=== PATIENT | female | born 1980 | race Caucasian/White ===

== ENCOUNTER 2017-10-01 06:39 | Emergency (ER) ==
[2017-10-01 06:42] VITALS: BP 127/83; TEMP 98.8; BMI 21.6
[2017-10-01] MEDS ORDERED: SODIUM CHLORIDE 1,000 ML IV STA (07:08)
--- NOTE | 2017-10-01 07:14 | ED.PDOC ---
General ED Provider: Dr. VIKTOR YEE Chief Complaint: Abdominal Pain Stated Complaint: Patient states that the she started having diarrhea every 15 min since 3 this AM. States she drank chochlete milk at 11pm that was not . States has an IUD. Time Seen by Physician: 07:11 Mode of Arrival: Walk-In Information Source: Patient Exam Limitations: No limitations Primary Care Provider: TAMARA STOVALL Nursing and Triage Documentation Reviewed and Agree: Yes Reviewed sepsis parameters & appropriate labs ordered?: Yes System Inflammatory Response Syndrome: Pulse >90 BPM Sepsis Protocol: For patient's 13 years and over: Temp is 96.8 and below OR 101 and greater Pulse >90 BPM Resp >20/minute Acutely Altered Mental Status Are patient's symptoms suggestive of a new infection, such as: -Pneumonia -Skin, Soft Tissue -Endocarditis -UTI -Bone, Joint Infection -Implantable Device -Acute Abdominal Infection -Wound Infection -Meningitis -Blood Stream Catheter Infection -Unknown System Inflammatory Response Syndrome: Not Applicable GI Complaint Exam - Vomiting/Diarrhea Complaint/Exam Onset/Duration: 3 hours Symptoms Are: Still present Episodes of Diarrhea Over Last 24 Hours: 12 Initial Severity: Moderate Current Severity: Severe Character of Diarrhea: Reports: Watery Aggravating: Reports: Food Alleviating: Reports: None Associated Signs and Symptoms: Denies: Dizziness, Light-headedness, Melena, Hematemesis, Fever, Abdominal pain, Cramping Recent Positive Test: No Use of Oral Contraceptives: No Use of Depoprovera: No Compliant With Contraceptive Use: No Non-GI Risk Factors: Reports: None Surgical Obstruction Risk Factors: Reports: None Related Surgical History: Reports: None Abdominal Findings: Absent: Pulsatile mass, Abdominal distention, Rebound tenderness, McBurney's Point tender Kussmaul Respirations Present: No Differential Diagnoses: Gastritis, Viral Gastroenteritis, Bacterial Gastroenteritis, , UTI Review of Systems - Review Of Systems Constitutional: Reports: No symptoms Eyes: Reports: No symptoms Ears, Nose, Mouth, Throat: Reports: No symptoms Respiratory: Reports: No symptoms Cardiac: Reports: No symptoms GI: Reports: Abdominal pain, Diarrhea, Nausea, Poor appetite : Reports: No symptoms Musculoskeletal: Reports: No symptoms Skin: Reports: No symptoms Neurological: Reports: No symptoms Endocrine: Reports: No symptoms Hematologic/Lymphatic: Reports: No symptoms All Other Systems: Reviewed and Negative Past Medical History - Past Medical History Previously Healthy: Yes Endocrine: Reports: None Cardiovascular: Reports: None Respiratory: Reports: None Hematological: Reports: None Gastrointestinal: Reports: None Genitourinary: Reports: None Neuro/Psych: Reports: None Musculoskeletal: Reports: None Cancer: Reports: None Last Menstrual Period: NONE - Surgical History General Surgical History: Reports: , Other (IUD placement ) - Family History Family History: Reports: None - Social History Smoking Status: Never smoker Hx Substance Use: No Alcohol Screening: None - Immunizations Tetanus Shot up to Date: Yes Physical Exam - Physical Exam Appearance: Ill-appearing Ill-appearing: Moderate Pain Distress: Severe Neck: Supple Respiratory: Airway patent, Breath sounds clear, Breath sounds equal, Respirations nonlabored Cardiovascular: RRR, Pulses normal, No rub, No murmur GI/: Soft, Tender (epigastric area, no rebound.) Musculoskeletal: Normal strength, ROM intact, No edema, No calf tenderness Skin: Warm, Dry, Normal color Neurological: Sensation intact, Motor intact, Reflexes intact, Cranial nerves intact, Alert, Oriented Psychiatric: Anxious Interpretation - Radiology Interpretation Radiology Interpretation By: Radiologist Radiology Results: Positive Exam Interpreted: CT Scan (enteritis ) Critical Care Note - Critical Care Note Total Time (mins): 0 Course - Course Hematology/Chemistry: 10/01/17 07:25 10/01/17 08:15 Orders, Labs, Meds: Lab Review 10/01/17 10/01/17 10/01/17 07:25 07:25 07:25 WBC 15.21 H RBC 4.75 Hgb 13.5 Hct 41.4 MCV 87.2 MCH 28.4 MCHC 32.6 RDW Coeff of Toni 12.7 Plt Count 267 Immature Gran % (Auto) 0.3 Neut % (Auto) 78.5 Lymph % (Auto) 15.0 Dolores % (Auto) 5.1 Eos % (Auto) 0.6 Baso % (Auto) 0.5 Immature Gran # (Auto) 0.1 Neut # 11.9 H Lymph # 2.3 Dolores # 0.8 Eos # 0.1 Baso # 0.1 Sodium Potassium Chloride Carbon Dioxide Anion Gap BUN Creatinine Estimated GFR (MDRD) BUN/Creatinine Ratio Glucose Calcium Total Bilirubin AST ALT Alkaline Phosphatase Total Protein Albumin Globulin Albumin/Globulin Ratio Amylase Lipase Urine Color Yellow Urine Clarity Clear Urine pH 5.0 Ur Specific [place] >=1.030 Urine Protein Negative Urine Glucose (UA) Negative Urine Ketones Negative Urine Blood 1+ Urine Nitrite Negative Urine Bilirubin Negative Urine Urobilinogen 0.2 Ur Leukocyte Esterase Negative Urine Microscopic RBC 5-10 Ur Squamous Epith Cells 10-20 Urine Mucus 1+ Urine Test Negative 10/01/17 08:15 WBC RBC Hgb Hct MCV MCH MCHC RDW Coeff of Toni Plt Count Immature Gran % (Auto) Neut % (Auto) Lymph % (Auto) Dolores % (Auto) Eos % (Auto) Baso % (Auto) Immature Gran # (Auto) Neut # Lymph # Dolores # Eos # Baso # Sodium 139 Potassium 4.1 Chloride 110 H Carbon Dioxide 22 Anion Gap 11.1 BUN 12 Creatinine 0.67 Estimated GFR (MDRD) 99.00 BUN/Creatinine Ratio 17.91 Glucose 111 H Calcium 9.3 Total Bilirubin 0.3 AST 13 L ALT 8 L Alkaline Phosphatase 60 Total Protein 7.2 Albumin 3.9 Globulin 3.3 Albumin/Globulin Ratio 1.18 Amylase 28 Lipase 10 Urine Color Urine Clarity Urine pH Ur Specific [place] Urine Protein Urine Glucose (UA) Urine Ketones Urine Blood Urine Nitrite Urine Bilirubin Urine Urobilinogen Ur Leukocyte Esterase Urine Microscopic RBC Ur Squamous Epith Cells Urine Mucus Urine Test Orders Category Date Time Status ED IV/MEDIPORT/POWERPORT .ONCE EMERGENCY 10/01/17 07:09 Active AMYLASE Stat LAB 10/01/17 08:15 Completed CBC W/ AUTO DIFF Stat LAB 10/01/17 07:25 Completed COMPREHENSIVE METABOLIC PANEL Stat LAB 10/01/17 08:15 Completed LIPASE Stat LAB 10/01/17 08:15 Completed URINALYSIS C & S IF INDICATED Stat LAB 10/01/17 07:25 Completed URINE Stat LAB 10/01/17 07:25 Completed 0.9 % Sodium Chloride [Saline Flush] MEDS 10/01/17 07:09 Active 1 syr IVF PRN PRN Morphine Sulfate [Morphine 4 mg/ml Vial] MEDS 10/01/17 07:08 Discontinued 4 mg IVP ONCE STA Ondansetron HCl/Pf [Zofran 4 mg/2 ml] MEDS 10/01/17 07:08 Discontinued 4 mg IVP ONCE STA Pantoprazole Sodium [Protonix IV] MEDS 10/01/17 07:17 Discontinued 40 [address] IVP ONCE STA CT ABD/PEL WO RENAL STONE PROT Stat RADS 10/01/17 07:09 Completed Medications Generic Name Dose Route Start Last Admin Trade Name Loraine PRN Reason Stop Dose Admin Sodium Chloride 1 syr 10/01/17 07:09 Saline Flush IVF PRN PRN To flush IV Discontinued Medications Generic Name Dose Route Start Last Admin Trade Name Loraine PRN Reason Stop Dose Admin Morphine Sulfate 4 mg 10/01/17 07:08 10/01/17 07:40 Morphine 4 Mg/Ml Vial IVP 10/01/17 07:09 4 mg ONCE STA Administration Ondansetron HCl 4 mg 10/01/17 07:08 10/01/17 07:40 Zofran 4 Mg/2 Ml IVP 10/01/17 07:09 4 mg ONCE STA Administration Pantoprazole Sodium 40 mg 10/01/17 07:17 10/01/17 07:41 Protonix Iv IVP 10/01/17 07:18 40 mg ONCE STA Administration Vital Signs: Temp Pulse Resp BP Pulse Ox 10/01/17 06:39 98.8 F 103 H 18 127/83 99 Departure - Departure Time of Disposition: 08:53 Disposition: HOME SELF-CARE Discharge Problem: Abdominal pain, Foodborne gastroenteritis Instructions: Gastroenteritis (ED) Condition: Stable Pt referred to PMD for follow-up: Yes IPMP verified?: No (not prescribing narcotics) Additional Instructions: Push fluids Take Medications for nausea and Diarrhea Prescriptions: Dicyclomine HCl [Bentyl] 10 mg PO TID PRN #20 capsule PRN Reason: Abdominal Pain Diphenoxylate HCl/Atropine [Lomotil 2.5-0.025 mg Tablet] 1 each PO TID PRN #15 tablet PRN Reason: Diarrhea Ondansetron HCl [Zofran Tab] 4 mg PO Q8H PRN #14 tablet PRN Reason: Nausea / Vomiting Allergies/Adverse Reactions: Allergies Sulfa (Sulfonamide Antibiotics) Adverse Reaction (Verified 10/01/17 07:08) Home Medications: Ambulatory Orders Dicyclomine HCl [Bentyl] 10 mg PO TID PRN #20 capsule 10/01/17 Diphenoxylate HCl/Atropine [Lomotil 2.5-0.025 mg Tablet] 1 each PO TID PRN #15 tablet 10/01/17 Ondansetron HCl [Zofran Tab] 4 mg PO Q8H PRN #14 tablet 10/01/17 Disposition Discussed With: Patient, Family
[2017-10-01] MEDS: ZOFRAN 4 MG/2 ML IVP STA (07:40)
[2017-10-01] MEDS: MORPHINE 4 MG/ML VIAL IVP STA (07:40)
[2017-10-01] MEDS: PROTONIX IV IVP STA (07:41)
--- NOTE | 2017-10-01 08:16 | CT ---
EXAM: Noncontrast CT of the abdomen and pelvis HISTORY: Abdominal pain, diarrhea COMPARISON: None available. TECHNIQUE: Noncontrast CT of the abdomen pelvis FINDINGS: There is mild pectus excavatum deformity. Noncontrast technique limits evaluation of the abdominal viscera. The unenhanced liver, gallbladder, spleen, adrenals, right kidney and pancreas are unremarkable. There is a left renal 3 mm parenchymal calcification versus nonobstructing calculus. No right renal calculi are seen. No ureteral calculi are identified. A mild amount of fluid is seen within the stomach, as well as a small amount of hyperdensity which ma y represent ingested material. No abnormal small bowel dilation is seen. A few fluid-filled loops o f small bowel are identified. Mild mesenteric edema is seen adjacent to some loops of small bowel in the left hemiabdomen. Fluid is seen within the ascending and transverse colon. The more distal colon is underdistended. The appendix is not abnormally enlarged. There is mild free pelvic fluid. No free air is seen. An intrauterine device is present. A small fa t-containing umbilical hernia is identified. There is dextrocurvature of the thoracolumbar spine. IMPRESSION: Findings suggestive of enteritis. Colonic fluid suggesting diarrheal state. Mild free pelvic fluid 3 mm left renal parenchymal calcification versus nonobstructing calculus.
== END 2017-10-01 09:08 | disposition home or self-care (01) ==
LOC: ED 06:39
DX: A05.9 Bacterial foodborne intoxication, unspecified (principal)
CPT/HCPCS: 36415; 74176; 80053; 81001; 81025; 82150; 83690; 85025; 96365; 96366; 96375; 99283